=== PATIENT | male | born 1945 ===

== ENCOUNTER → 2018-05-13 | Outpatient (CLI) | payer MEDICARE ==
--- NOTE | 2018-05-13 14:38 | MR ---
EXAMINATION TYPE: MR shoulder LT wo con DATE OF EXAM: 05/13/2018 COMPARISON: Outside left shoulder x-ray March 08, 2018. Prior MRI left shoulder May 23, 2012 HISTORY: Left shoulder pain per order. History of prior surgery with pain for 6 months per patient. TECHNIQUE: Multiplanar, multisequence imaging of the left shoulder is performed without contrast. FINDINGS: Rotator Cuff: Distal supraspinatus and infraspinatus tendons remain intact. There is redemonstration of artifact from prior surgical rotator cuff tendon repair. Subscapularis tendon is intact. Rotator c uff muscle bulk is preserved. Acromioclavicular Joint: There is stable abnormal widening of acromioclavicular joint, possible dista l clavicular resection. Distal acromion morphology is unremarkable. Anteriorly and superiorly to acro mion navicular joint there is stable oval lesion in subcutaneous fat measuring 1.3 cm paracoronal loco ge 7 of uncertain etiology but presumed benign given interval stability. Glenohumeral Joint: There is small to moderate-sized glenohumeral joint effusion with moderate narrow ing. No significant spurring is present. No significant change from prior. Labrum: Increased signal blunting consistent with expected degenerative superior labral tear is noted on coronal images. Biceps Tendon: The long head of biceps is not distinctly identified within bicipital groove. Neither intracapsular or extracapsular portion is well visualized. Bicipital groove is not well seen, they're may be external rotation similar to prior. Bone marrow signal: Heterogeneity consistent with red marrow reconversion is appreciated. Other: No additional significant abnormality is appreciated. IMPRESSION: No recurrent rotator cuff tear, surgical change redemonstrated. Poor visualization of bic eps tendon. Degenerative and postsurgical changes redemonstrated without significant change from prio r MRI.
== END | disposition home or self-care (01) ==
LOC: RADMRIMAIN 13:03
PROVIDERS: ATTEND Orthopaedic Surgery
DX: M19.012 Primary osteoarthritis, left shoulder (principal); Z98.890 Other specified postprocedural states